=== PATIENT | male | born 1935 | race Caucasian/White ===

== ENCOUNTER 2018-05-04 05:27 | Day surgery (SDC) | payer OTHER, MEDICARE ==
[~2018-05-04] VITALS: Ht 188 cm; Wt 104.9 kg
[~2018-05-04 05:27] MED LIST: ASPI-515 PO; ATOR-2 PO; BIFI4CAP PO; CHOL500015 PO; FENO160T PO; GLUC-88 PO; HYDR-3307 PO; MULT-224 PO; OMEG-120 PO; OMEP20CA9 PO; OXYB15TA PO; QUIN20TA17 PO; RANI150T23 PO; TAMS-11 PO; TIZA2TAB PO; TYLENOL PM PO; UBID1CAP51 PO; VITA600C2 PO
[2018-05-04] MEDS ORDERED: LISI-167 PO (06:04)
[2018-05-04] MEDS ORDERED: ASPI-496 PO (06:04)
[2018-05-04 06:13] VITALS: BP 124/81
[2018-05-04] MEDS ORDERED: POTA25TA4 PO (06:36)
[2018-05-04] MEDS ORDERED: LACTATED RINGERS 1,000 ML IV SCH (06:41)
[2018-05-04] MEDS ORDERED: BACITRACIN 50,000 UNIT ONE (06:49)
[2018-05-04] MEDS ORDERED: BUPIVACAINE/PF-EPI 0.5% 1:200K ONE (06:49)
[2018-05-04] MEDS ORDERED: BUPIVACAINE/PF 0.5% ONE (07:05)
[2018-05-04] MEDS ORDERED: PROPOFOL 50 ML ONE (07:12)
[2018-05-04] MEDS ORDERED: FENTANYL PF 100 MCG/2ML ONE (07:12)
[2018-05-04] MEDS ORDERED: CEFAZOLIN 1,000 MG ONE ×3 (07:39→10:32)
[2018-05-04] MEDS ORDERED: ACETAMINOPHEN 325 MG TABLET PO PRN (08:00)
[2018-05-04] MEDS ORDERED: PROMETHAZINE 25 MG SUPP PR PRN (08:00)
[2018-05-04] MEDS ORDERED: FENTANYL PF 100 MCG/2ML IV PRN (08:00)
[2018-05-04] MEDS ORDERED: DIPHENHYDRAMINE 50 MG/ML, 1ML IVPush PRN (08:00)
[2018-05-04] MEDS ORDERED: MORPHINE SULFATE 4 MG/ML, 1ML IVPush PRN (08:00)
[2018-05-04] MEDS ORDERED: PROMETHAZINE 25 MG/ML, 1ML IV PRN (08:00)
[2018-05-04] MEDS ORDERED: EPHEDRINE 50 MG/ML, 1ML IM PRN (08:00)
[2018-05-04] MEDS ORDERED: OXYcodone 5 MG/5 ML ORAL.SOL UDC PO PRN (08:00)
[2018-05-04] MEDS ORDERED: METOPROLOL 1 MG/ML, 5ML IV PRN (08:00)
[2018-05-04] MEDS ORDERED: MIDAZOLAM 1 MG/ML, 2ML IV PRN (08:00)
[2018-05-04] MEDS ORDERED: EPHEDRINE 50 MG/ML, 1ML IVPush PRN (08:00)
[2018-05-04] MEDS ORDERED: hydrALAzine 20 MG/ML, 1ML IV PRN (08:00)
[2018-05-04] MEDS ORDERED: ONDANSETRON ODT 8 MG PO PRN (08:00)
[2018-05-04] MEDS ORDERED: PROMETHAZINE 12.5 MG SUPP PR PRN (08:00)
[2018-05-04] MEDS ORDERED: ACETAMINOPHEN 650 MG/20.3 ML UDC ONE (08:36)
[2018-05-04] MEDS ORDERED: OXYcodone 5 MG/5 ML ORAL.SOL UDC ONE (08:37)
[2018-05-04] MEDS ORDERED: ONDANSETRON 2MG/ML, 2ML ONE (10:32)
[2018-05-04] MEDS ORDERED: DEXAMETHASONE 4 MG/ML, 1ML ONE (10:32)
== END 2018-05-04 10:08 | disposition home or self-care (01) ==
LOC: OUT 05:27
PROVIDERS: ATTEND Neurological Surgery
DX: G56.01 Carpal tunnel syndrome, right upper limb (principal); Z87.39 Personal history of other diseases of the musculoskeletal system and connective tissue; Z87.01 Personal history of pneumonia (recurrent); Z98.890 Other specified postprocedural states; Z79.82 Long term (current) use of aspirin; Z88.0 Allergy status to penicillin; Z72.89 Other problems related to lifestyle
CPT/HCPCS: 64721; J0690; J1100; J2405; J2704; J3010; J3490; J7120